=== PATIENT | male | born 1980 | race Two or more races ===

== ENCOUNTER 2020-02-29 13:07 | Emergency (ER) | payer SELFPAY ==
[~2020-02-29] VITALS: Ht 165.1 cm; Wt 76.2 kg
[2020-02-29 13:32] VITALS: BP 131/78
[2020-02-29] MEDS ORDERED: cefTRIAXone SOD 1,000 MG VL IM ONE (14:45)
[2020-02-29] MEDS ORDERED: ACETAMINOPHEN 500 MG TAB PO ONE (14:45)
== END 2020-02-29 16:16 | disposition home or self-care (01) ==
LOC: ER 13:07
DX: U07.1 COVID-19 (principal); J12.9 Viral pneumonia, unspecified
CPT/HCPCS: 71045; 96372; 99283; J0696